=== PATIENT | female | born 1940 | race Caucasian/White ===

== ENCOUNTER 2017-06-10 20:40 | Inpatient (IN) | payer MEDICARE, OTHER ==
[~2017-06-10] VITALS: Ht 167.6 cm; Wt 68.2 kg
[2017-06-10 21:00] VITALS: BP 194/99; PULSE 76; RESP 16; TEMP 97.9; O2SAT 99
[2017-06-10] MEDS ORDERED: QUEtiapine FUMARATE 25 MG TAB PO ONE (21:00)
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
[2017-06-10] MEDS ORDERED: LORazepam 2 MG/ML VIAL IM ONE (21:30)
[2017-06-10] MEDS ORDERED: OLANZapine IM 10 MG VIAL IM ONE (23:00)
[2017-06-11 00:27] LABS: AUTOMATED NEUTROPHIL # 3.8 TH/MM3 (1.8-7.7); BASOPHIL # 0.1 TH/MM3 (0-0.2); BASOPHIL % 1.1 % (0.0-2.0); EOSINOPHIL # 0.1 TH/MM3 (0-0.4); EOSINOPHIL % 0.8 % (0.0-4.0); HEMATOCRIT 38.4 % (35.0-46.0); HEMOGLOBIN 12.1 GM/DL (11.6-15.3); LYMPH % 31.8 % (9.0-44.0); LYMPHOCYTE # 2.1 TH/MM3 (1.0-4.8); MEAN CELL VOLUME 74.4 FL (80.0-100.0); MEAN CORPUSCULAR HEMOGLOBIN 23.5 PG (27.0-34.0); MEAN CORPUSCULAR HGB CONC 31.6 % (32.0-36.0); MEAN PLATELET VOLUME 7.8 FL (7.0-11.0); MONO % 7.9 % (0.0-8.0); MONOCYTE # 0.5 TH/MM3 (0-0.9); NEUT % 58.4 % (16.0-70.0); PLATELET COUNT 256 TH/MM3 (150-450); RED BLOOD COUNT 5.17 MIL/MM3 (4.00-5.30); WHITE BLOOD COUNT 6.5 TH/MM3 (4.0-11.0)
[2017-06-11 00:42] LABS: ALBUMIN 3.8 GM/DL (3.4-5.0); ALT (GPT) 23 U/L (10-53); AST (GOT) 20 U/L (15-37); BLOOD UREA NITROGEN 12 MG/DL (7-18); CALCIUM 9.5 MG/DL (8.5-10.1); CHLORIDE 107 MEQ/L (98-107); CREATININE 0.66 MG/DL (0.50-1.00); GLOMERULAR FILTRATION RATE 87 ML/MIN (>89); GLUCOSE,RANDOM 97 MG/DL (74-106); SODIUM (NA) 142 MEQ/L (136-145)
[2017-06-11 00:52] LABS: ALKALINE PHOSPHATASE 74 U/L (45-117); TOTAL BILIRUBIN ADULT 2.3 MG/DL (0.2-1.0)
[2017-06-11 03:00] VITALS: BP 136/74; PULSE 63; RESP 14; O2SAT 99
[2017-06-11 08:00] VITALS: BP 138/82; PULSE 76; RESP 16; TEMP 97.7; O2SAT 99
[2017-06-11] MEDS ORDERED: LORazepam 2 MG/ML VIAL IM ONE (09:00)
[2017-06-11 12:00] VITALS: BP 117/64; PULSE 65; RESP 14; O2SAT 99
[2017-06-11 12:40] LABS: BACTERIA, URINE RARE /hpf; BILIRUBIN, URINE NEG (NEG); BLOOD, URINE NEG (NEG); GLUCOSE,URINE NEG (NEG); KETONE, URINE NEG (NEG); MUCUS URINE FEW /lpf (OCC); NITRITE,URINE NEG (NEG); PH, URINE 6.5 (5.0-8.5); URINE COLOR LIGHT-YELLOW (YELLW/STRAW); URINE LEUKOCYTE ESTERASE TRACE (NEG)
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
--- NOTE | 2017-06-11 15:28 | HHI.PR ---
Subjective Remarks Endeavored to see pt for H&P. Chart reviewed. Case discussed with RN in D-Pod , shift manager, and sitter at bedside. On my exam, patient is sedated. She is in soft wrist restraints. She cannot be made to awaken to voice or to physical stimuli. She is breathing easily and appears to be in no acute physical distress. //BA remains in place. NEUROSURGERY PHYSICIAN to admit patient to inpatient psychiatric unit. I will try again to assess patient tomorrow on the unit. Recommend discontinuing restraints now that patient is calm and has a sitter for behavioral redirection. Objective Exam Patient is sedated. Unable to perform MSE. Labs Test 06/10/17 23:39 06/11/17 11:45 White Blood Count 6.5 TH/MM3 Red Blood Count 5.17 MIL/MM3 Hemoglobin 12.1 GM/DL Hematocrit 38.4 % Mean Corpuscular Volume 74.4 FL Mean Corpuscular Hemoglobin 23.5 PG Mean Corpuscular Hemoglobin Concent 31.6 % Red Cell Distribution Width 16.0 % Platelet Count 256 TH/MM3 Mean Platelet Volume 7.8 FL Neutrophils (%) (Auto) 58.4 % Lymphocytes (%) (Auto) 31.8 % Monocytes (%) (Auto) 7.9 % Eosinophils (%) (Auto) 0.8 % Basophils (%) (Auto) 1.1 % Neutrophils # (Auto) 3.8 TH/MM3 Lymphocytes # (Auto) 2.1 TH/MM3 Monocytes # (Auto) 0.5 TH/MM3 Eosinophils # (Auto) 0.1 TH/MM3 Basophils # (Auto) 0.1 TH/MM3 CBC Comment DIFF FINAL Differential Comment Blood Urea Nitrogen 12 MG/DL Creatinine 0.66 MG/DL Random Glucose 97 MG/DL Total Protein 7.0 GM/DL Albumin 3.8 GM/DL Calcium Level 9.5 MG/DL Alkaline Phosphatase 74 U/L Aspartate Amino Transf (AST/SGOT) 20 U/L Alanine Aminotransferase (ALT/SGPT) 23 U/L Total Bilirubin 2.3 MG/DL Sodium Level 142 MEQ/L Potassium Level 3.6 MEQ/L Chloride Level 107 MEQ/L Carbon Dioxide Level 27.0 MEQ/L Anion Gap 8 MEQ/L Estimat Glomerular Filtration Rate 87 ML/MIN Thyroid Stimulating Hormone 3rd Gen 1.850 uIU/ML Ethyl Alcohol Level LESS THAN 3 MG/DL Urine Color LIGHT-YELLOW Urine Turbidity CLEAR Urine pH 6.[address] [place] 1.008 Urine Protein NEG mg/dL Urine Glucose (UA) NEG mg/dL Urine Ketones NEG mg/dL Urine Occult Blood NEG Urine Nitrite NEG Urine Bilirubin NEG Urine Urobilinogen LESS THAN 2.0 MG/DL Urine Leukocyte Esterase TRACE Urine WBC 2 /hpf Urine Bacteria RARE /hpf Urine Mucus FEW /lpf Microscopic Urinalysis Comment CULT NOT INDICATED Urine Opiates Screen NEG Urine Barbiturates Screen NEG Urine Amphetamines Screen NEG Urine Benzodiazepines Screen NEG Urine Cocaine Screen NEG Urine Cannabinoids Screen NEG Vitals/IOs Vital Signs Date Time Temp Pulse Resp B/P (MAP) Pulse Ox O2 Delivery O2 Flow Rate FiO2 06/11/17 03:00 63 14 136/74 (94) 99 06/10/17 21:00 97.9 Intake and Output 06/11/17 06/11/17 06/12/17 08:00 16:00 00:00 Output Total 375 ml Balance -375 ml Assessment & Plan Problem List: (1) Encounter for psychiatric assessment ICD Codes: Z76.89 - Persons encountering health services in other specified circumstances Assessment & Plan See above Eliezer Gambino MD Jun 11, 2017 15:28
[2017-06-11] MEDS ORDERED: ALUMINUM/MAGNESIUM/SIMETH 30 ML CUP PO PRN (15:30)
[2017-06-11] MEDS ORDERED: MAGNESIUM HYDROXIDE SUSP 30 ML CUP PO PRN (15:30)
[2017-06-11] MEDS ORDERED: FLUMAZENIL 0.5 MG/5 ML VIAL IV PUSH PRN (15:30)
[2017-06-11] MEDS ORDERED: ACETAMINOPHEN 325 MG TAB PO PRN (15:30)
[2017-06-11] MEDS ORDERED: LORazepam 2 MG/ML VIAL IV PUSH PRN ×4 (16:00)
[2017-06-11] MEDS ORDERED: LORazepam 2 MG TAB PO PRN (16:00)
[2017-06-11] MEDS ORDERED: LORazepam 1 MG TAB PO PRN (16:00)
[2017-06-11] MEDS ORDERED: OLANZapine IM 10 MG VIAL IM ONE ×3 (19:29→23:45)
[2017-06-12 05:53] VITALS: BP 133/85; PULSE 120; RESP 18; TEMP 97.5; O2SAT 96
--- NOTE | 2017-06-12 08:00 | HHI.HP ---
Provisional Diagnosis Admission Date Jun 11, 2017 at 15:31 [place] I. 1. 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 Alcohol use, rule out use disorder [place] II. Deferred Certification of Person's Competence To Provide Express and Informed Consent I have personally examined Julienne Lima , a person being served at [facility] on, Jun 12, 2017 08:00. Express and informed consent means consent voluntarily given in writing, by a competent person, after sufficient explanation and disclosure of the subject matter involved to enable the person to make a knowing and willful decision without any element of force, fraud, deceit, duress, or other form of constraint or coercion. This person is 18 years of age or older, is not now known to be incompetent to consent to treatment with a guardian advocate, and does not have a health care surrogate or proxy currently making medical treatment decisions. I have found this person to be one of the following: [] Competent to provide express and informed consent, as defined above, for voluntary admission to this facility and is competent to provide express and informed consent for treatment. He/she has the consistent capacity to make well reasoned, willful, and knowing decisions concerning his or her medical or mental health treatment. The person fully and consistently understands the purpose of the admission for examination/placement and is fully capable of personally exercising all rights assured [place] [x] Incompetent to provide express and informed consent to voluntary admission, and this is incompetent to provide express and informed consent to treatment. The person must be transferred to involuntary status and a petition for a guardian advocate filed with the Circuit Court. [] Refusing to provide express and informed consent to voluntary admission but is competent to provide express and informed consent for treatment. The person must be discharged or transferred to involuntary status. Form shall be completed within 24 hours of a person's arrival at the receiving facility and filed in the clinical record of each person: 1. Admitted on a voluntary basis 2. Permitted to provide express and informed consent to his/her own treatment 3. Allowed to transfer from involuntary to voluntary status 4. Prior to permitting a person to consent to his or her own treatment after having been previously found incompetent to consent to treatment. History of Present Illness Capacity: Lacks Capacity Psych Chief Complaint: Dementia with psychosis HPI Ms. Lima is a 76-year-old female of uncertain past psychiatric history who was brought to the emergency department under a Garcia act by law enforcement alleging patient thought there was a woman in her house and had minimal food in the house. Patient was seen by the psychiatric nurse practitioner in the ED, and I have reviewed her notes. Reviewing the electronic medical record, I note this is patient's first visit to [facility]. Patient seen and examined. Chart reviewed. Case discussed with nursing staff. Patient awoke yesterday evening and was severely agitated, and at one point she tried to bite her sitter. As the physician solar installation technician, I ordered the patient medicated with Zyprexa 5 mg IM ETO, and when this was ineffective I ordered another 5 mg of Zyprexa IM ETO. Nurse reports that there is a active DCF investigation with concern that the patient may be being financially exploited. We are presently unsure who is the focus of this investigation, and nurse has tried to call DCF safety investigator/cause analyst to clarify this. On my exam this morning, patient remains with 1:1 sitter. She exhibits carphologia, picking at her blanket. She is quite confused and appears to be responding to internal stimuli. She makes odd statements at time, for example saying apropos of nothing, "no good time [employer] deal." Affect is irritable and dysphoric. She refuses to answer questions regarding SI/HI/AVH. Psychiatric interview is limited as patient is uncooperative and confused. She complains of generalized myalgias but has no other physical complaints. I do see the patient later up on the unit ambulating with her one-to-one sitter. I am unable to obtain any past psychiatric, family, chemical dependency or social history from the patient as she is uncooperative and confused. Patient does allow limited mental status testing: Registration is 0 out of 3 and recall is 0 out of 3 at 3 minutes. She believes that it is 1917 but does give the month correctly as May. She does not know the location. She cannot identify objects. She is able to spell the word world forwards but not backwards. Review of Systems ROS Limitations: Uncooperative, Poor Historian Except as stated in HPI: all other systems reviewed are Neg Past Family Social History Coded Allergies: No Allergy Information Available (Unverified , 06/10/17) Past Medical History See electronic medical record Unable to Obtain Active Prescriptions or Reported Meds Current Medications Medications (Trade) Dose Ordered Sig/Taylor Route Start Time Stop Time Status Last Admin (Tylenol) 650 mg Q4H PRN PO 06/11/17 15:30 (Milk Of Magnesia Liq) 30 ml DAILY PRN PO 06/11/17 15:30 (Mag-Al Plus Susp Liq) 30 ml Q6H PRN PO 06/11/17 15:30 (Folate) 1 mg DAILY PO 06/12/17 09:00 06/17/17 08:59 (Vitamin B1) 100 mg DAILY PO 06/12/17 09:00 (Theragran M Tab) 1 tab DAILY PO 06/12/17 09:00 06/17/17 08:59 (Romazicon Inj) 0.2 mg Q1M PRN IV PUSH 06/11/17 15:30 (Ativan) 1 mg Q4H PRN PO 06/11/17 16:00 (Ativan Inj) 1 mg Q4H PRN IV PUSH 06/11/17 16:00 (Ativan) 2 mg Q2H PRN PO 06/11/17 16:00 (Ativan Inj) 2 mg Q2H PRN IV PUSH 06/11/17 16:00 (Ativan Inj) 2 mg Q1H PRN IV PUSH 06/11/17 16:00 (Ativan Inj) 2 mg Q15M PRN IV PUSH 06/11/17 16:00 Patient's Strengths (min. 2) In a monitored setting. Retains some verbal fluency. Physical Exam Physical exam completed by ED provider. On my examination today, the patient appears to be in no acute physical distress. No motor abnormalities noted. No signs of alcohol withdrawal noted. Labs and vitals reviewed: Vital Signs Vital Signs Date Time Temp Pulse Resp B/P (MAP) Pulse Ox O2 Delivery O2 Flow Rate FiO2 06/12/17 05:53 97.5 120 18 133/85 (101) 96 06/11/17 12:00 Room Air Lab Results Laboratory Tests Test 06/10/17 23:39 06/11/17 11:45 White Blood Count 6.5 TH/MM3 Red Blood Count 5.17 MIL/MM3 Hemoglobin 12.1 GM/DL Hematocrit 38.4 % Mean Corpuscular Volume 74.4 FL Mean Corpuscular Hemoglobin 23.5 PG Mean Corpuscular Hemoglobin Concent 31.6 % Red Cell Distribution Width 16.0 % Platelet Count 256 TH/MM3 Mean Platelet Volume 7.8 FL Neutrophils (%) (Auto) 58.4 % Lymphocytes (%) (Auto) 31.8 % Monocytes (%) (Auto) 7.9 % Eosinophils (%) (Auto) 0.8 % Basophils (%) (Auto) 1.1 % Neutrophils # (Auto) 3.8 TH/MM3 Lymphocytes # (Auto) 2.1 TH/MM3 Monocytes # (Auto) 0.5 TH/MM3 Eosinophils # (Auto) 0.1 TH/MM3 Basophils # (Auto) 0.1 TH/MM3 CBC Comment DIFF FINAL Differential Comment Blood Urea Nitrogen 12 MG/DL Creatinine 0.66 MG/DL Random Glucose 97 MG/DL Total Protein 7.0 GM/DL Albumin 3.8 GM/DL Calcium Level 9.5 MG/DL Alkaline Phosphatase 74 U/L Aspartate Amino Transf (AST/SGOT) 20 U/L Alanine Aminotransferase (ALT/SGPT) 23 U/L Total Bilirubin 2.3 MG/DL Sodium Level 142 MEQ/L Potassium Level 3.6 MEQ/L Chloride Level 107 MEQ/L Carbon Dioxide Level 27.0 MEQ/L Anion Gap 8 MEQ/L Estimat Glomerular Filtration Rate 87 ML/MIN Thyroid Stimulating Hormone 3rd Gen 1.850 uIU/ML Ethyl Alcohol Level LESS THAN 3 MG/DL Urine Color LIGHT-YELLOW Urine Turbidity CLEAR Urine pH 6.5 Urine Specific Adger 1.008 Urine Protein NEG mg/dL Urine Glucose (UA) NEG mg/dL Urine Ketones NEG mg/dL Urine Occult Blood NEG Urine Nitrite NEG Urine Bilirubin NEG Urine Urobilinogen LESS THAN 2.0 MG/DL Urine Leukocyte Esterase TRACE Urine WBC 2 /hpf Urine Bacteria RARE /hpf Urine Mucus FEW /lpf Microscopic Urinalysis Comment CULT NOT INDICATED Urine Opiates Screen NEG Urine Barbiturates Screen NEG Urine Amphetamines Screen NEG Urine Benzodiazepines Screen NEG Urine Cocaine Screen NEG Urine Cannabinoids Screen NEG Mental Status Examination Appearance: Other (Fair grooming/hygiene) Consciousness: Alert (But keeps eyes tightly closed) Orientation: Person, Date/Time (May) Motor Activity: Other (Motor exam as above) Speech: Hesitant Language: Other (Rambling) Attention and Concentration: Easily Distracted Memory: Impaired Mood: Irritable, Other (Dysphoric) Affect: Other (Restricted) Thought Process & Associations: Disorganized Thought Content: Hallucinations Hallucination Type: Other (Responding to internal stimuli) Delusion Type: None Insight: Poor Judgment: Poor Mental Status Exam Remarks Patient noncommittal regarding SI, HI, AVH Assessment & Plan Problem List: (1) Dementia with psychosis ICD Codes: F03.91 - Unspecified dementia with behavioral disturbance Status: Acute Assessment & Plan 76-year-old female with psychiatric history as detailed above who presents under a Garcia act by law enforcement. On my examination today, the patient continues to exhibit signs of cognitive impairment and psychosis as identified by the nurse practitioner. Although nurse practitioner identified to relatives who might serve as health care surrogate, until we have a clearer idea of who is the focus of the DCF investigation regarding exploitation of the patient, I think it is prudent to hold off on using either individual for psychotropic medication consents. For the time being, I will plan to admit the patient to the inpatient psychiatric unit for safety and observation. Admitted inpatient. Involuntary status. I have completed first opinion. Consult for second opinion. Request healthcare surrogate and guardian advocate. Hold off on scheduled psychotropics for the time being until we identify HCS. Patient would likely benefit from an antipsychotic for the management of psychosis in the setting of probable dementia. Patient does have a possible history of alcohol use, and so I will order a CIWA scale with Ativan for the management of any withdrawal. Thiamine and folate. Seizure and fall precautions. PT eval. Unclear if patient's cognitive impairment has previously been worked up. TSH is wnl. UA with trace LE, check urine culture. Check head CT, RPR, HIV, ammonia, B12, vitamin D, thiamine, folate. Continue 1:1 sitter for fall risk and behavioral redirection. Vitals every shift. Counselor to see. Disposition planning. Estimated length of stay: 1-2 weeks. Discharge Planning To be determined Request HC Surrog/Guard Advoc?: Yes Eliezer Gambino MD Jun 12, 2017 08:00
[2017-06-12] MEDS: THIAMINE HCL 100 MG TAB PO SCH (09:00)
[2017-06-12] MEDS: FOLIC ACID 1 MG TAB PO SCH (09:00)
[2017-06-12] MEDS: MULTIVITAMINS/MINERALS THERAPEUTIC TAB PO SCH (10:18)
[2017-06-12 10:28] LABS: BICARBONATE 29.3 MEQ/L (21.0-32.0); BLOOD UREA NITROGEN 9 MG/DL (7-18); CALCIUM 9.5 MG/DL (8.5-10.1); CHLORIDE 107 MEQ/L (98-107); CHOLESTEROL 175 MG/DL (120-200); CREATININE 0.63 MG/DL (0.50-1.00); GLOMERULAR FILTRATION RATE 92 ML/MIN (>89); GLUCOSE,RANDOM 112 MG/DL (74-106); SODIUM (NA) 144 MEQ/L (136-145); TRIGLYCERIDES 69 MG/DL (42-150)
[2017-06-12 10:31] LABS: CHOLESTEROL/ HDL RATIO 2.06 RATIO; HDL CHOLESTEROL 84.9 MG/DL (40.0-60.0); LDL CHOLESTEROL 76 MG/DL (0-99)
[2017-06-12 12:32] LABS: FOLATE GREATER THAN 20.0 NG/ML (3.1-17.5)
[2017-06-12 17:23] VITALS: BP 156/100; PULSE 110; RESP 18; TEMP 97.2; O2SAT 96
[2017-06-13 06:16] VITALS: BP 171/81; PULSE 71; RESP 16; TEMP 98.9; O2SAT 99
[2017-06-13] MEDS: FOLIC ACID 1 MG TAB PO SCH (10:05)
[2017-06-13] MEDS: MULTIVITAMINS/MINERALS THERAPEUTIC TAB PO SCH (10:05)
[2017-06-13] MEDS: THIAMINE HCL 100 MG TAB PO SCH (10:05)
--- NOTE | 2017-06-13 12:58 | PD.PSY.CON ---
Provisional Diagnosis Admission Date Jun 11, 2017 at 15:31 [place] I. 1. 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 Alcohol use, rule out use disorder [place] II. Deferred History of Present Illness Service Psychiatry Consult Requested By Psychiatry Reason for Consult Second opinion Primary Care Physician Unknown HPI Ms. Lima is a 76-year-old female of uncertain past psychiatric history who was brought to the emergency department under a Garcia act by law enforcement alleging patient thought there was a woman in her house and had minimal food in the house. Patient was seen by the psychiatric nurse practitioner in the ED, and I have reviewed her notes. Reviewing the electronic medical record, I note this is patient's first visit to [facility].Patient seen and examined. Chart reviewed. Case discussed with nursing staff. Patient awoke yesterday evening and was severely agitated, and at one point she tried to bite her sitter. As the physician rehabilitation clerk, I ordered the patient medicated with Zyprexa 5 mg IM ETO , and when this was ineffective I ordered another 5 mg of Zyprexa IM ETO. Nurse reports that there is a active DCF investigation with concern that the patient may be being financially exploited. We are presently unsure who is the focus of this investigation, and nurse has tried to call DCF internal affairs investigator to clarify this. On my exam this morning, patient remains with 1:1 sitter. She exhibits carphologia, picking at her blanket. She is quite confused and appears to be responding to internal stimuli. She makes odd statements at time , for example saying apropos of nothing, "no good time [employer]." Affect is irritable and dysphoric. She refuses to answer questions regarding SI/HI/ AVH. Psychiatric interview is limited as patient is uncooperative and confused. She complains of generalized myalgias but has no other physical complaints. I do see the patient later up on the unit ambulating with her one- to-one sitter. Patient was seen today for second opinion. The patient is poorly cooperative, very oppositional and resistant. She is also irritable and verbally hostile. She reports that she does not want a repeat again what she has been saying over and over. The patient reports that she does not know what is the reason she is here. She says that she does not want to speak with any psychiatrist anymore "you asked to many unnecessary questions, you are not help him". As per nursing staff, the patient has been calm today, but episodically agitated and loud. Past Family Social History Coded Allergies: No Allergy Information Available (Unverified , 06/10/17) Unable to Obtain Active Prescriptions or Reported Meds Current Medications Medications (Trade) Dose Ordered Sig/Taylor Route Start Time Stop Time Status Last Admin (Tylenol) 650 mg Q4H PRN PO 06/11/17 15:30 (Milk Of Magnesia Liq) 30 ml DAILY PRN PO 06/11/17 15:30 (Mag-Al Plus Susp Liq) 30 ml Q6H PRN PO 06/11/17 15:30 (Folate) 1 mg DAILY PO 06/12/17 09:00 06/17/17 08:59 06/13/17 10:05 (Vitamin B1) 100 mg DAILY PO 06/12/17 09:00 06/13/17 10:05 (Theragran M Tab) 1 tab DAILY PO 06/12/17 09:00 06/17/17 08:59 06/13/17 10:05 (Romazicon Inj) 0.2 mg Q1M PRN IV PUSH 06/11/17 15:30 (Ativan) 1 mg Q4H PRN PO 06/11/17 16:00 06/12/17 21:48 (Ativan Inj) 1 mg Q4H PRN IV PUSH 06/11/17 16:00 (Ativan) 2 mg Q2H PRN PO 06/11/17 16:00 (Ativan Inj) 2 mg Q2H PRN IV PUSH 06/11/17 16:00 (Ativan Inj) 2 mg Q1H PRN IV PUSH 06/11/17 16:00 (Ativan Inj) 2 mg Q15M PRN IV PUSH 06/11/17 16:00 Patient's Strengths (min. 2) In a monitored setting. Retains some verbal fluency. Physical Exam Vital Signs Vital Signs Date Time Temp Pulse Resp B/P (MAP) Pulse Ox O2 Delivery O2 Flow Rate FiO2 06/13/17 06:16 98.9 71 16 171/81 (111) 99 06/11/17 12:00 Room Air I/O 06/13/17 06/13/17 06/13/17 07:59 15:59 23:59 Intake Total 120 ml Balance 120 ml Mental Status Examination Appearance: Other (Fair grooming/hygiene) Consciousness: Alert (But keeps eyes tightly closed) Orientation: Person, Date/Time (May) Motor Activity: Other (Motor exam as above) Speech: Hesitant Language: Other (Rambling) Attention and Concentration: Easily Distracted Memory: Impaired Mood: Irritable, Other (Dysphoric) Affect: Other (Restricted) Thought Process & Associations: Disorganized Thought Content: Hallucinations Hallucination Type: Other (Responding to internal stimuli) Delusion Type: None Insight: Poor Judgment: Poor Assessment & Plan Problem List: (1) Dementia with psychosis ICD Codes: F03.91 - Unspecified dementia with behavioral disturbance Status: Acute Assessment & Plan: I have seen and examined this patient, reviewed documentation, I agree and concur with Dr. Gambino assessment and plan. Assessment & Plan Estimated LOS: days Request HC Surrog/Guard Advoc?: Yes Balwinder Pastrana MD Jun 13, 2017 12:58
--- NOTE | 2017-06-13 16:44 | HHI.PYPN ---
Subjective Chief Complaint: Dementia with psychosis Remarks Patient is a 76-year-old woman, domiciled alone, unemployed, with no formal past psychiatric history, unclear previous psychiatric admissions, suicide attempts or self-injurious behavior, was admitted to 2 recent paranoia and delusions of people stealing from her home as well as people in her house, but she has called police 6 times prior to her admission and resulted in well check and had patient Garcia acted and subsequently admitted to the inpatient psychiatry for further evaluation and management. Currently there is a DCF case which is currently under investigation and unclear whether patient's relatives were exploiting the patient financially at this time we will continue defer signing any specific relative to act as health care surrogate. Patient continues to be alert and oriented only to person, continues with paranoid delusions during interview as per nursing report patient less evening had difficulty with sleep and was screaming all night. Patient's CIWA scores have been 2 [id number] continues on CIWA protocol. Patient unable to tolerate CT of the head for now will continue to look for the opportunity were patient is able tolerate to have the study done. Patient states that she is feeling "100%" stating that she has no problem at all, stating that her mood has been "fine". Patient states that her father had 2 months ago. Patient sitter has stated the patient continues to be noted to be irritable and cursing. Review of Systems Except as stated in HPI: all other systems reviewed are Neg Mental Status Examination Appearance: Other (Fair grooming/hygiene) Consciousness: Alert (But keeps eyes tightly closed) Orientation: Person, Date/Time (May) Motor Activity: Other (Motor exam as above) Speech: Hesitant Language: Other (Rambling) Attention and Concentration: Easily Distracted Memory: Impaired Mood: Irritable Affect: Irritable Thought Process & Associations: Disorganized Thought Content: Hallucinations Hallucination Type: Other (Responding to internal stimuli) Delusion Type: None Insight: Poor Judgment: Poor Results Vitals/IOs Vital Signs Date Time Temp Pulse Resp B/P (MAP) Pulse Ox O2 Delivery O2 Flow Rate FiO2 06/13/17 06:16 98.9 71 16 171/81 (111) 99 06/11/17 12:00 Room Air Intake and Output 06/13/17 06/13/17 06/13/17 07:59 15:59 23:59 Intake Total 120 ml 120 ml Balance 120 ml 120 ml Assessment & Plan Problem List: (1) Dementia with psychosis ICD Codes: F03.91 - Unspecified dementia with behavioral disturbance Status: Acute Assessment & Plan Patient continues with irritability, paranoia, labile mood with episodes of cursing towards staff. Patient will benefit from antipsychotic to address psychosis in the setting of dementia but at this time due to ongoing DCF case unclear who will be the appropriate contact to serve as health care surrogate for consent to medications. We will continue to try to clarify with DCF pair findings to be able to appoint someone as patient's health care surrogate to begin treatment. Continue to monitor mood and behavior. Patient to continue one-to-one observation for safety. Discharge planning in progress. Justification for Cont. Inpt. At risk for further decompensation if at lower level of care Request HC Surrog/Guard Advoc?: Yes Ernie Payne MD Jun 13, 2017 16:44
[2017-06-13 16:49] LABS: HEMOGLOBIN A1C 4.5 % (4.3-6.0)
[2017-06-13 19:01] VITALS: BP 154/73; PULSE 90; RESP 17; O2SAT 98
[2017-06-14 06:14] VITALS: BP 168/86; PULSE 73; RESP 17; TEMP 97.5; O2SAT 97
--- NOTE | 2017-06-14 10:55 | RADRPT ---
EXAM DATE/TIME: 06/14/2017 10:31 [facility] COMPARISON: No previous studies available for comparison. INDICATIONS : Altered mental status RADIATION DOSE: 33.50 CTDIvol (mGy) MEDICAL HISTORY : None SURGICAL HISTORY : None. ENCOUNTER: Initial ACUITY: 1 day PAIN SCALE: 0/10 LOCATION: cranial TECHNIQUE: Multiple contiguous axial images were obtained of the head. Using automated exposure control and adj ustment of the mA and/or kV according to patient size, radiation dose was kept as low as reasonably a chievable to obtain optimal diagnostic quality images. DICOM format image data is available electro nically for review and comparison. FINDINGS: CEREBRUM: Moderate diffuse renal atrophy. Diffuse ventriculomegaly slightly out of proportion to degree of atro phy. No evidence of midline shift, mass lesion, hemorrhage or acute infarction. No extra-axial fluid collections are seen. POSTERIOR FOSSA: Moderate diffuse cerebral atrophy. The cerebellum and brainstem are intact. The 4th ventricle is mid line. The cerebellopontine angle is unremarkable. EXTRACRANIAL: The visualized portion of the orbits is intact. SKULL: The calvaria is intact. No evidence of skull fracture. CONCLUSION: 1. Senescent changes with diffuse ventriculomegaly that is slightly out of proportion to degree of at rophy. Clinical correlation for normal pressure hydrocephalus is recommended. 2. Otherwise, no acute intracranial abnormality. Fer Solano MD on June 14, 2017 at 10:51 Board Certified Radiologist. This report was verified electronically.
[2017-06-14] MEDS: FOLIC ACID 1 MG TAB PO SCH (11:01)
[2017-06-14] MEDS: MULTIVITAMINS/MINERALS THERAPEUTIC TAB PO SCH (11:01)
[2017-06-14] MEDS: THIAMINE HCL 100 MG TAB PO SCH (11:01)
--- NOTE | 2017-06-14 11:10 | HHI.PYPN ---
Subjective Chief Complaint: Dementia with psychosis Remarks Patient seen for follow, chart reviewed. Discussion nursing staff reported the patient slightly less evening but noted to be agitated with roommate begins talking out loud, noted to be have perceptual services, CIWA negative. Patient was found lying hospital bed asleep was able to wake up for interview. Patient states that she has been feeling tired and her mood in general has been "awful to explain" but was unable to elaborate. Patient denies any perceptional services despite being observed to be responding to internal stimuli. Patient believes that she is in her bedroom at home and states that she speaks to her daily but then states that he had . Patient reports last that she has been with her and was less evening. Patient continues to be alert and oriented only to person. Review of Systems Except as stated in HPI: all other systems reviewed are Neg Mental Status Examination Appearance: Other (Fair grooming/hygiene) Consciousness: Alert (But keeps eyes tightly closed) Orientation: Person, Date/Time (May) Motor Activity: Other (Motor exam as above) Speech: Hesitant Language: Other (Rambling) Attention and Concentration: Easily Distracted Memory: Impaired Mood: Other ("Awful to explain") Affect: Irritable (Less so today) Thought Process & Associations: Disorganized Thought Content: Hallucinations Hallucination Type: Other (Responding to internal stimuli) Delusion Type: None Suicidal Ideation: No Suicidal Plan: No Suicidal Intention: No Homicidal Ideation: No Homicidal Plan: No Homicidal Intention: No Insight: Poor Judgment: Poor Results Vitals/IOs Vital Signs Date Time Temp Pulse Resp B/P (MAP) Pulse Ox O2 Delivery O2 Flow Rate FiO2 06/14/17 06:14 97.5 73 17 168/86 (113) 97 06/11/17 12:00 Room Air Intake and Output 06/14/17 06/14/17 06/15/17 08:00 16:00 00:00 Intake Total 120 ml Balance 120 ml Assessment & Plan Problem List: (1) Dementia with psychosis ICD Codes: F03.91 - Unspecified dementia with behavioral disturbance Status: Acute Assessment & Plan Patient this time continues to be alert and oriented only to person, continue to be observed to have responsiveness to internal stimuli and hallucinations. Patient would benefit from starting antipsychotic but at this time unclear whether any family member can serve as health care surrogate due to ongoing DCF case at this time. Treatment team attempted to contact gang investigator from [facility] but has not had focal returned yet for more information. We will continue to await clarification of this to be able to sign someone as a GCS to the patient may begin treatment. Patient will present to mental health court on and if there is no family member that can be appointed, MARICRUZ will be appointed through the court. Continue to monitor mood and behavior. Continue with one-to -one sitter for safety. Discharge planning in progress. Justification for Cont. Inpt. At risk for further decompensation if at lower level of care Request HC Surrog/Guard Advoc?: Yes Ernie Payne MD Jun 14, 2017 11:10
[2017-06-14 18:31] VITALS: BP 123/58; PULSE 81; RESP 16; TEMP 97.6; O2SAT 97
[2017-06-15 05:02] VITALS: BP 133/61; PULSE 63; RESP 15; TEMP 97.7; O2SAT 97
[2017-06-15] MEDS: MULTIVITAMINS/MINERALS THERAPEUTIC TAB PO SCH (09:53)
[2017-06-15] MEDS: FOLIC ACID 1 MG TAB PO SCH (09:53)
[2017-06-15] MEDS: THIAMINE HCL 100 MG TAB PO SCH (09:53)
--- NOTE | 2017-06-15 16:43 | HHI.PYPN ---
Subjective Chief Complaint: Dementia with psychosis Remarks Patient seen for follow-up, chart reviewed. Discussion nursing staff reported patient continues to be noted to have visual hallucinations at times, but no aggressive behavior recently. Was found sitting hospital bed over viewing documents stipulating the patient will be presented to mental health court tomorrow and noting that she was upset stating "I am not a crazy person". Patient denies any perceptual disturbances somewhat focused on her is stating that she he was a wonderful man. Patient would at times referred to her has if he was still alive but then later states that he had . She mentions that her had 2 months ago. Patient also stated having and reading a book with restorationism content stating that she had planned to send the author two checks of $100,000 and has been referring this book with 2 of her friends. Review of Systems Except as stated in HPI: all other systems reviewed are Neg Mental Status Examination Appearance: Other (Fair grooming/hygiene) Consciousness: Alert (But keeps eyes tightly closed) Orientation: Person, Date/Time (May) Motor Activity: Other (Motor exam as above) Speech: Hesitant Language: Other (Rambling) Attention and Concentration: Easily Distracted Memory: Impaired Mood: Other ("Awful to explain") Affect: Irritable (Less so today) Thought Process & Associations: Loose associations, Disorganized Thought Content: Hallucinations Hallucination Type: Other (Responding to internal stimuli) Delusion Type: None Suicidal Ideation: No Suicidal Plan: No Suicidal Intention: No Homicidal Ideation: No Homicidal Plan: No Homicidal Intention: No Insight: Poor Judgment: Poor Results Vitals/IOs Vital Signs Date Time Temp Pulse Resp B/P (MAP) Pulse Ox O2 Delivery O2 Flow Rate FiO2 06/15/17 05:02 97.7 63 15 133/61 (85) 97 06/11/17 12:00 Room Air Intake and Output 06/15/17 06/15/17 06/16/17 08:00 16:00 00:00 Intake Total 480 ml 720 ml Balance 480 ml 720 ml Assessment & Plan Problem List: (1) Dementia with psychosis ICD Codes: F03.91 - Unspecified dementia with behavioral disturbance Status: Acute Assessment & Plan Patient at this time continues to have some disorganization, continues to be alert and oriented only to person. Patient continues to be noted to be responding to internal stimuli as per report from consider. Clarification on who will serve as patient's health care surrogate continues to be unclear if patient's family cancer this will due to current ongoing DCF case. Patient will present to mental health court tomorrow. Continue to monitor mood and behavior. Discharge planning in progress. Justification for Cont. Inpt. At risk of further decompensation a lower level of care. Request HC Surrog/Guard Advoc?: Yes Ernie Payne MD Jun 15, 2017 16:42
[2017-06-15 17:54] VITALS: BP 119/80; PULSE 100; RESP 16; TEMP 98; O2SAT 97
[2017-06-16 06:00] VITALS: BP 150/70; PULSE 69; RESP 16; TEMP 97.3; O2SAT 98
[2017-06-16] MEDS: FOLIC ACID 1 MG TAB PO SCH (09:00)
[2017-06-16] MEDS: MULTIVITAMINS/MINERALS THERAPEUTIC TAB PO SCH (09:00)
[2017-06-16] MEDS: THIAMINE HCL 100 MG TAB PO SCH ×2 (09:00→10:48)
--- NOTE | 2017-06-16 12:09 | HHI.PYPN ---
Subjective Chief Complaint: Dementia with psychosis Remarks Patient seen for follow-up, chart reviewed. Discussion with nursing staff reported patient continued to be confused slightly irritable. Patient was found sitting hospital chair next sitter also noted to be irritable during interview. Patient states that she was told by several people that she was going to be discharged back to her home. Patient was alert and oriented 2 today. I attempted to get history patient was noted to be very guarded when she was unable to recall details such as where she was born first saying [place], [place] and then [place]. Patient was noted to be somewhat religiously preoccupied with spiritism book which she had wrapped newspaper. Review of Systems Except as stated in HPI: all other systems reviewed are Neg Mental Status Examination Appearance: Other (Fair grooming/hygiene) Consciousness: Alert (But keeps eyes tightly closed) Orientation: Person, Place Motor Activity: Other (Motor exam as above) Speech: Unremarkable Language: Other (Rambling) Attention and Concentration: Easily Distracted Memory: Impaired Mood: Other ("I'm fine!") Affect: Irritable (Less so today) Thought Process & Associations: Loose associations, Disorganized Thought Content: Hallucinations Hallucination Type: Other (Responding to internal stimuli) Delusion Type: None Suicidal Ideation: No Suicidal Plan: No Suicidal Intention: No Homicidal Ideation: No Homicidal Plan: No Homicidal Intention: No Insight: Poor Judgment: Poor Results Vitals/IOs Vital Signs Date Time Temp Pulse Resp B/P (MAP) Pulse Ox O2 Delivery O2 Flow Rate FiO2 06/16/17 06:00 97.3 69 16 150/70 (96) 98 Intake and Output 06/16/17 06/16/17 06/17/17 08:00 16:00 00:00 Intake Total 60 ml Balance 60 ml Assessment & Plan Problem List: (1) Dementia with psychosis ICD Codes: F03.91 - Unspecified dementia with behavioral disturbance Status: Acute Assessment & Plan Patient this time continues to be confused, with impairment of memory secondary to neurocognitive deficits. Patient was presented in mental health court which patient was kept on a continuance. Reportedly patient's sisters are coming down from [place] with plan to bring patient back up with them to care for her. We will make attempts to reach patient's sister consented psychotropic medications as sisters were signed through mental health court as health care surrogate. Continue to monitor mood and behavior. Continue one-to-one observation for safety. Discharge planning in progress. Justification for Cont. Inpt. At risk for further decompensation if at lower level of care Request HC Surrog/Guard Advoc?: Yes Ernie Payne MD Jun 16, 2017 12:09
[2017-06-16 18:45] VITALS: BP 150/70; PULSE 69; RESP 16; TEMP 97.3
[2017-06-17 06:33] VITALS: BP 153/83; PULSE 69; RESP 15; TEMP 97.6; O2SAT 97
[2017-06-17] MEDS: THIAMINE HCL 100 MG TAB PO SCH (09:08)
[2017-06-17] MEDS ORDERED: OLANZapine IM 10 MG VIAL IM ONE ×2 (11:06→11:15)
--- NOTE | 2017-06-17 15:25 | PD.CONS ---
HPI [facility] Consult Requested By DR CONRAD ANTHONY MD Reason for Consult POSSIBLE normal pressure hydrocephalus Primary Care Physician Unknown Diagnoses: (1) Dementia with psychosis (2) Alcohol use disorder History of Present Illness Patient is a 76-year-old female who is here under a Garcia act due to dementia with psychosis and chronic alcohol abuse. We have been asked to evaluate regarding possibility of normal pressure hydrocephalus. Will ask neurosurgery to evaluate this. Will get a.m. labs. Have discussed with patient and RN patient is able to ambulate without a walker. Review of Systems ROS Limitations: Altered Mental Status Constitutional: DENIES: Diaphoretic episodes, Fatigue, Fever, Weight gain, Weight loss, Chills, Dizziness, Change in appetite, Night Sweats Endocrine: DENIES: Abnorml menstrual pattern, Heat/cold intolerance, Polydipsia , Polyuria, Polyphagia Eyes: DENIES: Blurred vision, Diplopia, Eye inflammation, Eye pain, Vision loss , Photosensitivity, Double Vision Ears, nose, mouth, throat: DENIES: Tinnitus, Hearing loss, Vertigo, Nasal discharge, Oral lesions, Throat pain, Hoarseness, Ear Pain, Running Nose, Epistaxis, Sinus Pain, Toothache, Odynophagia Respiratory: DENIES: Apneas, Cough, Snoring, Wheezing, Hemoptysis, Sputum production, Shortness of breath Cardiovascular: DENIES: Chest pain, Palpitations, Syncope, Dyspnea on Exertion , PND, Lower Extremity Edema, Orthopnea, Claudication Gastrointestinal: DENIES: Abdominal pain, Black stools, Bloody stools, Constipation, Diarrhea, Nausea, Vomiting, Difficulty Swallowing, Anorexia Genitourinary: DENIES: Abnormal vaginal bleeding, Dysmenorrhea, Dyspareunia, Sexual dysfunction, Urinary frequency, Urinary incontinence, Urgency, Hematuria , Dysuria, Nocturia, Vaginal discharge Musculoskeletal: DENIES: Joint pain, Muscle aches, Stiffness, Joint Swelling, Back pain, Neck pain Integumentary: DENIES: Abnormal pigmentation, Pruritus, Rash, Nail changes, Breast masses, Breast skin changes, Nipple discharge Hematologic/lymphatic: DENIES: Bruising, Lymphadenopathy Immunologic/allergic: DENIES: Eczema, Urticaria Neurologic: COMPLAINS OF: Abnormal gait, Poor Balance, DENIES: Headache, Localized weakness, Paresthesias, Seizures, Speech Problems, Tremor Psychiatric: COMPLAINS OF: Anxiety, Confusion, Depression, Delusions, DENIES: Mood changes Except as stated in HPI: all other systems reviewed are Neg Past Family Social History Allergies: Coded Allergies: No Allergy Information Available (Unverified , 06/10/17) Past Medical History Dementia Alcohol abuse Gait instability Past Surgical History Unobtainable from patient Reported Medications Reported Meds & Active Scripts Active Active Prescriptions or Reported Medications Unobtainable Active Ordered Medications Current Medications Quetiapine Fumarate (SEROquel) 25 mg ONCE ONCE PO Last administered on at 21:19; Start 06/10/17 at 21:00; Stop 06/10/17 at 21:01; Status DC Lorazepam (Ativan Inj) 1 mg ONCE ONCE IM Last administered on 06/11/17at 01:18 ; Start 06/10/17 at 21:30; Stop 06/10/17 at 21:31; Status DC Olanzapine (ZyPREXA INJ) 10 mg ONCE ONCE IM Last administered on 06/10/17at 23: 13; Start 06/10/17 at 23:00; Stop 06/10/17 at 23:01; Status DC Lorazepam (Ativan Inj) 1 mg ONCE ONCE IM Last administered on 06/11/17at 08:59 ; Start 06/11/17 at 09:00; Stop 06/11/17 at 09:01; Status DC Acetaminophen (Tylenol) 650 mg Q4H PRN PO Pain 1-5 or Temp >101F Last administered on 06/13/17at 17:40; Start 06/11/17 at 15:30 Magnesium Hydroxide (Milk Of Magnesia Liq) 30 ml DAILY PRN PO CONSTIPATION; Start 06/11/17 at 15:30 Al Hydrox/Mg Hydrox/Simethicone (Mag-Al Plus Susp Liq) 30 ml Q6H PRN PO DYSPEPSIA; Start 06/11/17 at 15:30 Folic Acid (Folate) 1 mg DAILY PO Last administered on 06/16/17at 09:00; Start 06/12/17 at 09:00; Stop 06/17/17 at 08:59; Status DC Thiamine HCl (Vitamin B1) 100 mg DAILY PO Last administered on 06/17/17at 09:08 ; Start 06/12/17 at 09:00 Multivitamins/ Minerals Therapeutic (Theragran M Tab) 1 tab DAILY PO Last administered on 06/16/17at 09:00; Start 06/12/17 at 09:00; Stop 06/17/17 at 08:59 ; Status DC Flumazenil (Romazicon Inj) 0.2 mg Q1M PRN IV PUSH SEE LABEL COMMENTS; Start at 15:30 Lorazepam (Ativan) 1 mg Q4H PRN PO CIWA 8 - 10 Last administered on 06/12/17at 21:48; Start 06/11/17 at 16:00 Lorazepam (Ativan Inj) 1 mg Q4H PRN IV PUSH CIWA 8 - 10; Start 06/11/17 at 16: 00 Lorazepam (Ativan) 2 mg Q2H PRN PO CIWA 11-14; Start 06/11/17 at 16:00 Lorazepam (Ativan Inj) 2 mg Q2H PRN IV PUSH CIWA 11-14; Start 06/11/17 at 16:00 Lorazepam (Ativan Inj) 2 mg Q1H PRN IV PUSH CIWA 15-20; Start 06/11/17 at 16:00 Lorazepam (Ativan Inj) 2 mg Q15M PRN IV PUSH CIWA > 20; Start 06/11/17 at 16:00 Olanzapine (ZyPREXA INJ) 10 mg STK-MED ONCE IM ; Start 06/11/17 at 19:29; Stop 06/11/17 at 19:30; Status DC Olanzapine (ZyPREXA INJ) 5 mg ONCE ONCE IM Last administered on 06/11/17at 19: 30; Start 06/11/17 at 19:45; Stop 06/11/17 at 19:46; Status DC Olanzapine (ZyPREXA INJ) 5 mg ONCE ONCE IM Last administered on 06/11/17at 23: 41; Start 06/11/17 at 23:45; Stop 06/11/17 at 23:46; Status DC Olanzapine (ZyPREXA INJ) 10 mg STK-MED ONCE IM ; Start 06/17/17 at 11:06; Stop 06/17/17 at 11:07; Status DC Olanzapine (ZyPREXA INJ) 5 mg ONCE ONCE IM Last administered on 06/17/17at 11: 15; Start 06/17/17 at 11:15; Stop 06/17/17 at 11:17; Status DC Aripiprazole (Abilify) 2 mg HS PO ; Start 06/17/17 at 21:00 Family History Unobtainable from patient Social History Alcohol abuse per chart review denies any tobacco or illicits currently Physical Exam Vital Signs Vital Signs Date Time Temp Pulse Resp B/P (MAP) Pulse Ox O2 Delivery O2 Flow Rate FiO2 06/17/17 06:33 97.6 69 15 153/83 (106) 97 06/16/17 18:45 97.3 69 16 150/70 (96) Physical Exam GENERAL: This is a well-nourished, well-developed patient, in no apparent distress. SKIN: No rashes, ecchymoses or lesions. Cool and dry. HEAD: Atraumatic. Normocephalic. No temporal or scalp tenderness. EYES: Pupils equal round and reactive. Extraocular motions intact. No scleral icterus. No injection or drainage. ENT: Nose without bleeding, purulent drainage or septal hematoma. Throat without erythema, tonsillar hypertrophy or exudate. Uvula midline. Airway patent. NECK: Trachea midline. No JVD or lymphadenopathy. Supple, nontender, no meningeal signs. CARDIOVASCULAR: Regular rate and rhythm without murmurs, gallops, or rubs. RESPIRATORY: Clear to auscultation. Breath sounds equal bilaterally. No wheezes , rales, or rhonchi. GASTROINTESTINAL: Abdomen soft, non-tender, nondistended. No hepato-splenomegaly , or palpable masses. No guarding. MUSCULOSKELETAL: Extremities without clubbing, cyanosis, or edema. No joint tenderness, effusion, or edema noted. No calf tenderness. Negative Homans sign bilaterally. NEUROLOGICAL: Awake and alert. Cranial nerves II through XII intact. Motor and sensory grossly within normal limits. Five out of 5 muscle strength in all muscle groups. Normal speech. Laboratory Pending Imaging Last Impressions Head CT 06/14/17 0000 Signed Impressions: Service Date/Time: Wednesday, June 14, 2017 10:31 - CONCLUSION: 1. Senescent changes with diffuse ventriculomegaly that is slightly out of proportion to degree of atrophy. Clinical correlation for normal pressure hydrocephalus is recommended. 2. Otherwise, no acute intracranial abnormality. Fer Solano MD Assessment and Plan Assessment and Plan Dementia will defer to psychiatry Alcohol abuse continue on multivitamin thiamine and folic acid Possible normal pressure hydrocephalus We will consult neurosurgery for evaluation physical therapy note does not Suggest wide-based gait Patient does have dementia No issues at this time with urinary issues but is wearing a diaper Possible hypertension we will monitor Code Status Full code Discussed Condition With RN and patient David Gutierrez DO Jun 17, 2017 15:25
[2017-06-17 17:31] VITALS: BP 143/108; PULSE 120; RESP 20; O2SAT 97
--- NOTE | 2017-06-17 17:37 | HHI.PYPN ---
Subjective Chief Complaint: Dementia with psychosis Remarks Patient seen for follow, chart reviewed. Discussion nursing staff reported the patient will be irritable and agitated which she required ETO of Zyprexa 5 mg IM 1 to address symptomatology. Patient was later seen sitting in hospital chair noted B, cooperative. Patient states that she is having a good day, states that family came to visit and having been wanting to take her back to [place]. Patient reports sleeping well with good appetite denies any physical complaints at this time. Patient continues to be confused alert and oriented only to person. Licensed Nurse Practitioner spoke with patient's sister who will serve as health care surrogate during her hospitalization, Adelina Salas ([phone] ) who consented to starting Abilify 2 mg p.o. at bedtime with upward titration as needed for psychosis and agitation related to dementia. Hospitalist consult was requested due to recent head CT showing possible normal pressure hydrocephalus. Patient to continue one-to-one observation for safety. Family is planning to come next week to have patient return to [place] with them. Review of Systems Except as stated in HPI: all other systems reviewed are Neg Mental Status Examination Appearance: Appropriate, Other (Fair grooming/hygiene) Consciousness: Alert (But keeps eyes tightly closed) Orientation: Person, Place Motor Activity: Other (Motor exam as above) Speech: Unremarkable Language: Adequate Fund of Knowledge: Inadequate Attention and Concentration: Easily Distracted Memory: Impaired Mood: Good Affect: Irritable (Less so today) Thought Process & Associations: Loose associations, Disorganized Thought Content: Hallucinations Hallucination Type: Other (Responding to internal stimuli) Delusion Type: None Suicidal Ideation: No Suicidal Plan: No Suicidal Intention: No Homicidal Ideation: No Homicidal Plan: No Homicidal Intention: No Insight: Poor Judgment: Poor Results Vitals/IOs Vital Signs Date Time Temp Pulse Resp B/P (MAP) Pulse Ox O2 Delivery O2 Flow Rate FiO2 06/17/17 17:31 120 20 143/108 (120) 97 06/17/17 06:33 97.6 Intake and Output 06/17/17 06/17/17 06/18/17 08:00 16:00 00:00 Intake Total 480 ml 240 ml Balance 480 ml 240 ml Assessment & Plan Problem List: (1) Dementia with psychosis ICD Codes: F03.91 - Unspecified dementia with behavioral disturbance Status: Acute Assessment & Plan Patient this time continues to be confused secondary to dementia. Patient with recent irritable and agitated episode which she required Zyprexa 5 mg IM 1 to manage symptomatology. Patient to continue current treatment. We will start Abilify 2 mg p.o. at bedtime for management of psychosis and agitation with upper titration as needed. Consent obtained by patient's sister via telephone. Continue to monitor mood and behavior. Continue one-to-one observation for safety. Discharge planning in progress. Justification for Cont. Inpt. At risk of further decompensation at lower level of care. Request HC Surrog/Guard Advoc?: Yes Ernie Payne MD Jun 17, 2017 17:36
[2017-06-17] MEDS ORDERED: cloNIDine HCL 0.1 MG TAB PO PRN (17:45)
[2017-06-17 17:51] VITALS: BP 137/72; PULSE 90; RESP 20; TEMP 98.1; O2SAT 97
[2017-06-17] MEDS ORDERED: cloNIDine HCL 0.1 MG/24 HR PATCH T-DERMAL SCH (18:00)
--- NOTE | 2017-06-17 19:04 | MB ---
cc: Hari ANDERSON DATE: 06/17/2017 CHIEF COMPLAINT: Agitation. HISTORY OF PRESENT ILLNESS: This is a 76-year-old female patient who presented to the emergency room under a Garcia Act by the police department. At the time of her history, the patient was living alone. She reported that her had 2 weeks prior to her admission. Apparently, the patient was found rambling at home and she felt that people were stealing from her, and she was apparently found in a poor state by the police and she was brought to the emergency room for further evaluation. No other history is available at the present time. PAST SURGICAL HISTORY: Unobtainable. MEDICATIONS: Unobtainable. ALLERGIES: Unobtainable. REVIEW OF SYSTEMS: Not obtainable. SOCIAL HISTORY: Not obtainable. PHYSICAL EXAMINATION: VITAL SIGNS: Temperature of 98.1, pulse of 90, respiratory rate of 20, blood pressure of 137/72, pulse oximetry 97%. GENERAL: Shows a well-developed, agitated, thin female who wants to leave the unit and states that everybody is bullying her. HEENT: Unremarkable. NECK: Supple with good carotid pulses bilaterally. CHEST: Symmetric. Lungs are clear. HEART: Shows regular rhythm with normal heart sounds. ABDOMEN: Soft. EXTREMITIES: Clear. SKIN: Clear. NEUROLOGIC: She is alert and awake. She has a fluent speech. She is confused. She is agitated. She tends to ramble. She follows some simple commands. She is presently standing and walking in the aj. Cranial nerves 2-12 appear intact. Motor exam is 5+/5. Sensory exam intact to touch. Deep tendon reflexes are 1+ at all sites. DIAGNOSTIC STUDIES: Review of a CT scan of the brain shows what appears to be some cortical atrophy with moderate ventriculomegaly. No masses are seen. OVERALL IMPRESSION: Moderate ventriculomegaly. It is not clear whether this lady has normal pressure hydrocephalus. There is no evidence of apraxia of gait and no clear evidence of urinary incontinence. Would recommend outpatient evaluation once she is controlled. She will require an MRI of the brain. She will also require a neurology evaluation and depending on those tests, she may need to have a provocative test for cerebrospinal fluid drainage. Since she does not have any apraxia of gait and she does not appear to have any significant urinary incontinence, it is unclear whether this truly represents normal pressure hydrocephalus. Again, if she is going to leave the area to go to [place], she should undergo evaluation in [place], but she can be followed here if needed and indicated. Hari BLACK/JACKIE , 06:35 PM , 07:03 PM [place]
[2017-06-17] MEDS: ARIPiprazole 2 MG TAB PO SCH ×2 (20:50→20:53)
--- NOTE | 2017-06-17 23:37 | EKG ---
Date Performed: 06/17/2017 Time Performed: 14:40:15 PTAGE: 76 years EKG: Sinus rhythm VOLTAGE CRITERIA FOR LVH ABNORMAL ECG NO PREVIOUS TRACING DOCTOR: Robert Iqbal Interpretating Date/Time 06/17/2017 23:35:24
[2017-06-18 06:01] VITALS: BP 164/80; PULSE 64; RESP 16; TEMP 97.9; O2SAT 95
[2017-06-18 08:44] LABS: BASOPHIL # 0.1 TH/MM3 (0-0.2); EOSINOPHIL # 0.1 TH/MM3 (0-0.4); EOSINOPHIL % 2.1 % (0.0-4.0); HEMATOCRIT 40.6 % (35.0-46.0); HEMOGLOBIN 12.8 GM/DL (11.6-15.3); LYMPH % 35.5 % (9.0-44.0); MEAN CELL VOLUME 74.4 FL (80.0-100.0); MEAN CORPUSCULAR HEMOGLOBIN 23.5 PG (27.0-34.0); MEAN CORPUSCULAR HGB CONC 31.5 % (32.0-36.0); MEAN PLATELET VOLUME 7.8 FL (7.0-11.0); MONO % 6.4 % (0.0-8.0); MONOCYTE # 0.4 TH/MM3 (0-0.9); PLATELET COUNT 296 TH/MM3 (150-450); RED BLOOD COUNT 5.45 MIL/MM3 (4.00-5.30); RED CELL DISTRIBUTION WIDTH 16.3 % (11.6-17.2); WHITE BLOOD COUNT 5.5 TH/MM3 (4.0-11.0)
[2017-06-18 09:11] LABS: ALBUMIN 3.7 GM/DL (3.4-5.0); ALT (GPT) 29 U/L (10-53); AST (GOT) 24 U/L (15-37); BICARBONATE 31.3 MEQ/L (21.0-32.0); BLOOD UREA NITROGEN 15 MG/DL (7-18); CALCIUM 9.6 MG/DL (8.5-10.1); CHLORIDE 106 MEQ/L (98-107); CREATININE 0.65 MG/DL (0.50-1.00); GLOMERULAR FILTRATION RATE 89 ML/MIN (>89); GLUCOSE,RANDOM 87 MG/DL (74-106); MAGNESIUM 2.2 MG/DL (1.5-2.5); SODIUM (NA) 143 MEQ/L (136-145)
[2017-06-18 09:20] LABS: ALKALINE PHOSPHATASE 66 U/L (45-117); FREE T4 1.11 NG/DL (0.76-1.46); PHOSPHORUS 2.3 MG/DL (2.5-4.9); TOTAL BILIRUBIN ADULT 1.4 MG/DL (0.2-1.0); TOTAL PROTEIN 7.4 GM/DL (6.4-8.2)
[2017-06-18 10:42] LABS: HEMOGLOBIN A1C 4.6 % (4.3-6.0)
--- NOTE | 2017-06-18 10:48 | HHI.PR ---
Subjective Remarks Patient is a 76-year-old female who is here under a Garcia act due to dementia with psychosis and chronic alcohol abuse. We have been asked to evaluate regarding possibility of normal pressure hydrocephalus. Will ask neurosurgery to evaluate this. Will get a.m. labs. Have discussed with patient and RN patient is able to ambulate without a walker. 06-18 patient has been seen by neurosurgery and they recommended an MRI and the rest of the study recommend as an outpatient Patient does not fit the normal pressure hydrocephalus picture Does not have urinary incontinence and does not have majorly abnormal gait Will order the MRI Objective Vitals Vital Signs Date Time Temp Pulse Resp B/P (MAP) Pulse Ox O2 Delivery O2 Flow Rate FiO2 06/18/17 06:01 97.9 64 16 164/80 (108) 95 06/17/17 17:51 98.1 90 20 137/72 (93) 97 06/17/17 17:31 120 20 143/108 (120) 97 I/O 06/17/17 06/17/17 06/17/17 06/18/17 06/18/17 06/18/17 07:00 15:00 23:00 07:00 15:00 23:00 Intake Total 480 ml 240 ml 0 ml 0 ml 360 ml Balance 480 ml 240 ml 0 ml 0 ml 360 ml Intake Oral 480 ml 240 ml 0 ml 0 ml 360 ml # Voids 2 0 2 Result Diagram: 06/18/17 0807 06/18/17 0807 Other Results Laboratory Tests Test 06/18/17 08:07 White Blood Count 5.5 TH/MM3 Red Blood Count 5.45 MIL/MM3 Hemoglobin 12.8 GM/DL Hematocrit 40.6 % Mean Corpuscular Volume 74.4 FL Mean Corpuscular Hemoglobin 23.5 PG Mean Corpuscular Hemoglobin Concent 31.5 % Red Cell Distribution Width 16.3 % Platelet Count 296 TH/MM3 Mean Platelet Volume 7.8 FL Neutrophils (%) (Auto) 55.0 % Lymphocytes (%) (Auto) 35.5 % Monocytes (%) (Auto) 6.4 % Eosinophils (%) (Auto) 2.1 % Basophils (%) (Auto) 1.0 % Neutrophils # (Auto) 3.0 TH/MM3 Lymphocytes # (Auto) 2.0 TH/MM3 Monocytes # (Auto) 0.4 TH/MM3 Eosinophils # (Auto) 0.1 TH/MM3 Basophils # (Auto) 0.1 TH/MM3 CBC Comment DIFF FINAL Differential Comment Blood Urea Nitrogen 15 MG/DL Creatinine 0.65 MG/DL Random Glucose 87 MG/DL Total Protein 7.4 GM/DL Albumin 3.7 GM/DL Calcium Level 9.6 MG/DL Phosphorus Level 2.3 MG/DL Magnesium Level 2.2 MG/DL Alkaline Phosphatase 66 U/L Aspartate Amino Transf (AST/SGOT) 24 U/L Alanine Aminotransferase (ALT/SGPT) 29 U/L Total Bilirubin 1.4 MG/DL Sodium Level 143 MEQ/L Potassium Level 4.0 MEQ/L Chloride Level 106 MEQ/L Carbon Dioxide Level 31.3 MEQ/L Anion Gap 6 MEQ/L Estimat Glomerular Filtration Rate 89 ML/MIN Free Thyroxine 1.11 NG/DL Thyroid Stimulating Hormone 3rd Gen 3.280 uIU/ML Imaging Last Impressions Head CT 06/14/17 0000 Signed Impressions: Service Date/Time: Wednesday, June 14, 2017 10:31 - CONCLUSION: 1. Senescent changes with diffuse ventriculomegaly that is slightly out of proportion to degree of atrophy. Clinical correlation for normal pressure hydrocephalus is recommended. 2. Otherwise, no acute intracranial abnormality. Fer Solano MD Objective Remarks GENERAL: Awake and alert oriented 2-3 did not get the year correctly SKIN: Warm and dry. HEAD: Atraumatic. Normocephalic. EYES: Pupils equal and round. No scleral icterus. No injection or drainage. Extraocular muscles intact ENT: No nasal bleeding or discharge. Mucous membranes pink and moist. Tongue is midline NECK: Trachea midline. No JVD. CARDIOVASCULAR: Regular rate and rhythm. S1-S2 no S3 or S4 RESPIRATORY: No accessory muscle use. Clear to auscultation. Breath sounds equal bilaterally. GASTROINTESTINAL: Abdomen soft, non-tender, nondistended. Hepatic and splenic margins not palpable. MUSCULOSKELETAL: Extremities without clubbing, cyanosis, or edema. No obvious deformities. NEUROLOGICAL: Awake and alert. No obvious cranial nerve deficits. Motor grossly within normal limits. 4 out of 5 muscle strength in the arms and legs. Normal speech. PSYCHIATRIC: INAppropriate mood and affect; insight and judgment ABnormal. Procedures None Medications and IVs Current Medications Quetiapine Fumarate (SEROquel) 25 mg ONCE ONCE PO Last administered on at 21:19; Start 06/10/17 at 21:00; Stop 06/10/17 at 21:01; Status DC Lorazepam (Ativan Inj) 1 mg ONCE ONCE IM Last administered on 06/11/17at 01:18 ; Start 06/10/17 at 21:30; Stop 06/10/17 at 21:31; Status DC Olanzapine (ZyPREXA INJ) 10 mg ONCE ONCE IM Last administered on 06/10/17at 23: 13; Start 06/10/17 at 23:00; Stop 06/10/17 at 23:01; Status DC Lorazepam (Ativan Inj) 1 mg ONCE ONCE IM Last administered on 06/11/17at 08:59 ; Start 06/11/17 at 09:00; Stop 06/11/17 at 09:01; Status DC Acetaminophen (Tylenol) 650 mg Q4H PRN PO Pain 1-5 or Temp >101F Last administered on 06/13/17at 17:40; Start 06/11/17 at 15:30 Magnesium Hydroxide (Milk Of Magnesia Liq) 30 ml DAILY PRN PO CONSTIPATION; Start 06/11/17 at 15:30 Al Hydrox/Mg Hydrox/Simethicone (Mag-Al Plus Susp Liq) 30 ml Q6H PRN PO DYSPEPSIA; Start 06/11/17 at 15:30 Folic Acid (Folate) 1 mg DAILY PO Last administered on 06/16/17at 09:00; Start 06/12/17 at 09:00; Stop 06/17/17 at 08:59; Status DC Thiamine HCl (Vitamin B1) 100 mg DAILY PO Last administered on 06/17/17at 09:08 ; Start 06/12/17 at 09:00 Multivitamins/ Minerals Therapeutic (Theragran M Tab) 1 tab DAILY PO Last administered on 06/16/17at 09:00; Start 06/12/17 at 09:00; Stop 06/17/17 at 08:59 ; Status DC Flumazenil (Romazicon Inj) 0.2 mg Q1M PRN IV PUSH SEE LABEL COMMENTS; Start at 15:30 Lorazepam (Ativan) 1 mg Q4H PRN PO CIWA 8 - 10 Last administered on 06/12/17at 21:48; Start 06/11/17 at 16:00 Lorazepam (Ativan Inj) 1 mg Q4H PRN IV PUSH CIWA 8 - 10; Start 06/11/17 at 16: 00 Lorazepam (Ativan) 2 mg Q2H PRN PO CIWA 11-14; Start 06/11/17 at 16:00 Lorazepam (Ativan Inj) 2 mg Q2H PRN IV PUSH CIWA 11-14; Start 06/11/17 at 16:00 Lorazepam (Ativan Inj) 2 mg Q1H PRN IV PUSH CIWA 15-20; Start 06/11/17 at 16:00 Lorazepam (Ativan Inj) 2 mg Q15M PRN IV PUSH CIWA > 20; Start 06/11/17 at 16:00 Olanzapine (ZyPREXA INJ) 10 mg STK-MED ONCE IM ; Start 06/11/17 at 19:29; Stop 06/11/17 at 19:30; Status DC Olanzapine (ZyPREXA INJ) 5 mg ONCE ONCE IM Last administered on 06/11/17at 19: 30; Start 06/11/17 at 19:45; Stop 06/11/17 at 19:46; Status DC Olanzapine (ZyPREXA INJ) 5 mg ONCE ONCE IM Last administered on 06/11/17at 23: 41; Start 06/11/17 at 23:45; Stop 06/11/17 at 23:46; Status DC Olanzapine (ZyPREXA INJ) 10 mg STK-MED ONCE IM ; Start 06/17/17 at 11:06; Stop 06/17/17 at 11:07; Status DC Olanzapine (ZyPREXA INJ) 5 mg ONCE ONCE IM Last administered on 06/17/17at 11: 15; Start 06/17/17 at 11:15; Stop 06/17/17 at 11:17; Status DC Aripiprazole (Abilify) 2 mg HS PO ; Start 06/17/17 at 21:00 Clonidine (Catapres) 0.1 mg Q4H PRN PO SBP>160, DBP>90; Start 06/17/17 at 17:45 Clonidine (Catapres-Tts 0.1mg Patch.7d) 1 patch Q7D T-DERMAL Last administered on 06/17/17at 18:00; Start 06/17/17 at 18:00 A/P Problem List: (1) Dementia with psychosis ICD Code: F03.91 - Unspecified dementia with behavioral disturbance Status: Acute (2) Alcohol use disorder ICD Code: F10.99 - Alcohol use, unspecified with unspecified alcohol-induced disorder Status: Acute Assessment and Plan Dementia will defer to psychiatry Alcohol abuse continue on multivitamin thiamine and folic acid Possible normal pressure hydrocephalus--NEITHER MYSELF OR NEUROSURGERY SUSPECT NPH We will consult neurosurgery for evaluation -WILL GET MRI AT RECOMMENDATIONS physical therapy note does not Suggest wide-based gait Patient does have dementia No issues at this time with urinary issues but is wearing a diaper Possible hypertension we will monitor- CATAPRES PRN Discharge Planning PENDING PSYCHIATRIC CLEARANCE David Gutierrez DO Jun 18, 2017 10:47
--- NOTE | 2017-06-18 11:20 | HHI.PYPN ---
Subjective Chief Complaint: Dementia with psychosis Remarks The patient was seen today for psychiatric reevaluation. Patient was found in her room, very colorful, wearing sunglasses, talkative. Patient reports that she feels fine, she is happy, ready to go out to take some sun. Patient has a very poor insight of her psychiatric conditions, she says that she came to the hospital because her father and her mother recently and she has been depressed. She denies suicidal enemas ideation, she denies visual and auditory hallucinations. The patient is disorganized, with loosening of associations, but redirectable. Patient has been refusing medications, at times disruptive in the unit. Review of Systems Constitutional: DENIES: Diaphoretic episodes, Fatigue, Fever, Weight gain, Weight loss, Chills, Dizziness, Change in appetite, Night Sweats Endocrine: DENIES: Abnorml menstrual pattern, Heat/cold intolerance, Polydipsia , Polyuria, Polyphagia Eyes: DENIES: Blurred vision, Diplopia, Eye inflammation, Eye pain, Vision loss , Photosensitivity, Double Vision Ears, nose, mouth, throat: DENIES: Tinnitus, Hearing loss, Vertigo, Nasal discharge, Oral lesions, Throat pain, Hoarseness, Ear Pain, Running Nose, Epistaxis, Sinus Pain, Toothache, Odynophagia Respiratory: DENIES: Apneas, Cough, Snoring, Wheezing, Hemoptysis, Sputum production, Shortness of breath Cardiovascular: DENIES: Chest pain, Palpitations, Syncope, Dyspnea on Exertion , PND, Lower Extremity Edema, Orthopnea, Claudication Gastrointestinal: DENIES: Abdominal pain, Black stools, Bloody stools, Constipation, Diarrhea, Nausea, Vomiting, Difficulty Swallowing, Anorexia Genitourinary: DENIES: Abnormal vaginal bleeding, Dysmenorrhea, Dyspareunia, Sexual dysfunction, Urinary frequency, Urinary incontinence, Urgency, Hematuria , Dysuria, Nocturia, Vaginal discharge Musculoskeletal: DENIES: Joint pain, Muscle aches, Stiffness, Joint Swelling, Back pain, Neck pain Integumentary: DENIES: Abnormal pigmentation, Pruritus, Rash, Nail changes, Breast masses, Breast skin changes, Nipple discharge Hematologic/lymphatic: DENIES: Bruising, Lymphadenopathy Immunologic/allergic: DENIES: Eczema, Urticaria Psychiatric: DENIES: Anxiety, Confusion, Mood changes, Depression, Hallucinations, Agitation, Suicidal Ideation, Homicidal Ideation, Delusions Mental Status Examination Appearance: Appropriate, Other (Fair grooming/hygiene) Consciousness: Alert (But keeps eyes tightly closed) Orientation: Person, Place Motor Activity: Other (Motor exam as above) Speech: Unremarkable Language: Adequate Fund of Knowledge: Inadequate Attention and Concentration: Easily Distracted Memory: Impaired Mood: Good Affect: Irritable (Less so today) Thought Process & Associations: Loose associations, Disorganized Thought Content: Hallucinations Hallucination Type: Other (Responding to internal stimuli) Delusion Type: None Suicidal Ideation: No Suicidal Plan: No Suicidal Intention: No Homicidal Ideation: No Homicidal Plan: No Homicidal Intention: No Insight: Poor Judgment: Poor Results Labs Test 06/18/17 08:07 White Blood Count 5.5 TH/MM3 Red Blood Count 5.45 MIL/MM3 Hemoglobin 12.8 GM/DL Hematocrit 40.6 % Mean Corpuscular Volume 74.4 FL Mean Corpuscular Hemoglobin 23.5 PG Mean Corpuscular Hemoglobin Concent 31.5 % Red Cell Distribution Width 16.3 % Platelet Count 296 TH/MM3 Mean Platelet Volume 7.8 FL Neutrophils (%) (Auto) 55.0 % Lymphocytes (%) (Auto) 35.5 % Monocytes (%) (Auto) 6.4 % Eosinophils (%) (Auto) 2.1 % Basophils (%) (Auto) 1.0 % Neutrophils # (Auto) 3.0 TH/MM3 Lymphocytes # (Auto) 2.0 TH/MM3 Monocytes # (Auto) 0.4 TH/MM3 Eosinophils # (Auto) 0.1 TH/MM3 Basophils # (Auto) 0.1 TH/MM3 CBC Comment DIFF FINAL Differential Comment Blood Urea Nitrogen 15 MG/DL Creatinine 0.65 MG/DL Random Glucose 87 MG/DL Total Protein 7.4 GM/DL Albumin 3.7 GM/DL Calcium Level 9.6 MG/DL Phosphorus Level 2.3 MG/DL Magnesium Level 2.2 MG/DL Alkaline Phosphatase 66 U/L Aspartate Amino Transf (AST/SGOT) 24 U/L Alanine Aminotransferase (ALT/SGPT) 29 U/L Total Bilirubin 1.4 MG/DL Sodium Level 143 MEQ/L Potassium Level 4.0 MEQ/L Chloride Level 106 MEQ/L Carbon Dioxide Level 31.3 MEQ/L Anion Gap 6 MEQ/L Estimat Glomerular Filtration Rate 89 ML/MIN Hemoglobin A1c 4.6 % Free Thyroxine 1.11 NG/DL Thyroid Stimulating Hormone 3rd Gen 3.280 uIU/ML Vitals/IOs Vital Signs Date Time Temp Pulse Resp B/P (MAP) Pulse Ox O2 Delivery O2 Flow Rate FiO2 06/18/17 06:01 97.9 64 16 164/80 (108) 95 Intake and Output 06/18/17 06/18/17 06/18/17 07:59 15:59 23:59 Intake Total 0 ml 360 ml Balance 0 ml 360 ml Assessment & Plan Problem List: (1) Dementia with psychosis ICD Codes: F03.91 - Unspecified dementia with behavioral disturbance Status: Acute Assessment & Plan: Patient continues to be disorganized, with loosening of associations, very talkative and delusional continue current psychotropic medication. Encouraged the patient to take her medications. Assessment & Plan Estimated LOS: days Justification for Cont. Inpt. Patient is acutely psychotic. Request HC Surrog/Guard Advoc?: Yes Balwinder Pastrana MD Jun 18, 2017 11:20
[2017-06-18 18:19] VITALS: BP 138/64; PULSE 80; RESP 20; TEMP 97.7; O2SAT 98
[2017-06-18] MEDS: ARIPiprazole 2 MG TAB PO SCH (21:05)
[2017-06-19 07:14] VITALS: BP 138/68; PULSE 65; RESP 18; TEMP 97.4; O2SAT 99
--- NOTE | 2017-06-19 08:56 | RADRPT ---
EXAM DATE/TIME: 06/19/2017 08:31 [facility] COMPARISON: CT BRAIN W/O CONTRAST, June 14, 2017, 10:31. INDICATIONS : Hydrocephalus. MEDICAL HISTORY : Hypertension. Renal calculi. SURGICAL HISTORY : None. ENCOUNTER: Initial ACUITY: 4-6 days PAIN SCORE: 0/10 LOCATION: cranial TECHNIQUE: Multiplanar, multisequence MRI of the brain was performed without contrast. FINDINGS: Diffusion weighted images demonstrate no evidence for acute infarction. There is diffuse prominence o f the CSF spaces, ventricles and cisterns. The signal intensity of the brain is normal for age. There is mild ventriculomegaly. No hemorrhage or mass. CONCLUSION: Diffuse atrophy otherwise unremarkable. Efra Rajput MD on June 19, 2017 at 8:52 Board Certified Radiologist. This report was verified electronically.
[2017-06-19] MEDS: THIAMINE HCL 100 MG TAB PO SCH (09:20)
--- NOTE | 2017-06-19 10:38 | HHI.PYPN ---
Subjective Chief Complaint: Dementia with psychosis Remarks The patient was seen today for psychiatric reevaluation along with nurse in charge Cem. The patient is talkative, with elevated mood and affect, quite histrionic. She reports that she does not need to take medications, that she is absolutely fine, she is very happy," I love myself, I know I am perfect, I did not need to take medications". With redirection the patient was able to a set finally to take the medications. She has been compliant on and off. At times confused, she is just partially oriented in time and place. She denies suicidal and was ideation, she denies visual and auditory hallucinations. Review of Systems Except as stated in HPI: all other systems reviewed are Neg Mental Status Examination Appearance: Appropriate, Other (Fair grooming/hygiene) Consciousness: Alert (But keeps eyes tightly closed) Orientation: Person, Place Motor Activity: Other (Motor exam as above) Speech: Unremarkable Language: Adequate Fund of Knowledge: Inadequate Attention and Concentration: Easily Distracted Memory: Impaired Mood: Good Affect: Irritable (Less so today) Thought Process & Associations: Loose associations, Disorganized Thought Content: Hallucinations Hallucination Type: Other (Responding to internal stimuli) Delusion Type: None Suicidal Ideation: No Suicidal Plan: No Suicidal Intention: No Homicidal Ideation: No Homicidal Plan: No Homicidal Intention: No Insight: Poor Judgment: Poor Results Vitals/IOs Vital Signs Date Time Temp Pulse Resp B/P (MAP) Pulse Ox O2 Delivery O2 Flow Rate FiO2 06/19/17 07:14 97.4 65 18 138/68 (91) 99 Intake and Output 06/19/17 06/19/17 06/20/17 08:00 16:00 00:00 Intake Total 0 ml Balance 0 ml Assessment & Plan Problem List: (1) Dementia with psychosis ICD Codes: F03.91 - Unspecified dementia with behavioral disturbance Status: Acute Assessment & Plan: Continue current psychotropic regimen. Encouraged the patient to take medications. I do not see a reason to keep the patient with a sitter. Assessment & Plan Estimated LOS: days Justification for Cont. Inpt. Patient has an increased risk to decompensate at a lower level of care Request HC Surrog/Guard Advoc?: Yes Balwinder Pastrana MD Jun 19, 2017 10:38
--- NOTE | 2017-06-19 11:00 | HHI.PR ---
Subjective Remarks Patient seen and examined this morning. Afebrile vital signs stable. Doing well at this time. Has no major complaints other than that she is sleepy. Will continue current medical regimen. Awaiting results of MRI for further evaluation. Objective Vitals Vital Signs Date Time Temp Pulse Resp B/P (MAP) Pulse Ox O2 Delivery O2 Flow Rate FiO2 06/19/17 07:14 97.4 65 18 138/68 (91) 99 06/18/17 18:19 97.7 80 20 138/64 (88) 98 I/O 06/18/17 06/18/17 06/18/17 06/19/17 06/19/17 06/19/17 07:00 15:00 23:00 07:00 15:00 23:00 Intake Total 0 ml 1200 ml 1200 ml 0 ml Balance 0 ml 1200 ml 1200 ml 0 ml Intake Oral 0 ml 1200 ml 1200 ml 0 ml # Voids 2 0 1 Result Diagram: 06/18/17 0807 06/18/17 0807 Imaging Last Impressions Brain MRI 06/19/17 0000 Signed Impressions: Service Date/Time: Monday, June 19, 2017 08:31 - CONCLUSION: Diffuse atrophy otherwise unremarkable. Efra Rajput MD Head CT 06/14/17 0000 Signed Impressions: Service Date/Time: Wednesday, June 14, 2017 10:31 - CONCLUSION: 1. Senescent changes with diffuse ventriculomegaly that is slightly out of proportion to degree of atrophy. Clinical correlation for normal pressure hydrocephalus is recommended. 2. Otherwise, no acute intracranial abnormality. Fer Solano MD Objective Remarks GEN: Well-developed, well-nourished patient thin female. No acute distress. CV: Regular rate and rhythm without obvious murmurs LUNGS: Clear to auscultation bilaterally. Normal respiratory effort. No wheezes , rales, rhonchi. GI: Soft, nontender, nondistended. No palpable masses. Bowel sounds WNL. EXT: No edema. NEURO/PSYCH: Afocal. Awake, alert, and oriented x2 missed the date. Appropriate insight and judgment. Procedures None Medications and IVs Current Medications Medications (Trade) Dose Ordered Sig/Taylor Route Start Time Stop Time Status Last Admin (Tylenol) 650 mg Q4H PRN PO 06/11/17 15:30 06/13/17 17:40 (Milk Of Magnesia Liq) 30 ml DAILY PRN PO 06/11/17 15:30 (Mag-Al Plus Susp Liq) 30 ml Q6H PRN PO 06/11/17 15:30 (Vitamin B1) 100 mg DAILY PO 06/12/17 09:00 06/19/17 09:20 (Romazicon Inj) 0.2 mg Q1M PRN IV PUSH 06/11/17 15:30 (Ativan) 1 mg Q4H PRN PO 06/11/17 16:00 06/12/17 21:48 (Ativan Inj) 1 mg Q4H PRN IV PUSH 06/11/17 16:00 (Ativan) 2 mg Q2H PRN PO 06/11/17 16:00 (Ativan Inj) 2 mg Q2H PRN IV PUSH 06/11/17 16:00 (Ativan Inj) 2 mg Q1H PRN IV PUSH 06/11/17 16:00 (Ativan Inj) 2 mg Q15M PRN IV PUSH 06/11/17 16:00 (Abilify) 2 mg HS PO 06/17/17 21:00 06/18/17 21:05 (Catapres) 0.1 mg Q4H PRN PO 06/17/17 17:45 (Catapres-Tts 0.1mg Patch.7d) 1 patch Q7D T-DERMAL 06/17/17 18:00 06/17/17 18:00 A/P Problem List: (1) Dementia with psychosis ICD Code: F03.91 - Unspecified dementia with behavioral disturbance Status: Acute (2) Alcohol use disorder ICD Code: F10.99 - Alcohol use, unspecified with unspecified alcohol-induced disorder Status: Acute Assessment and Plan 76-year-old female with history of alcohol abuse and dementia with psychosis at this time. Dementia will defer to psychiatry Alcohol abuse continue on multivitamin thiamine and folic acid Possible normal pressure hydrocephalus--neurosurgeon does not suspect NPH -consulted neurosurgery for evaluation -Pending MRI results at this time. physical therapy note does not Suggest wide-based gait Patient does have dementia No issues at this time with urinary issues but is wearing a diaper Possible hypertension we will monitor- CATAPRES PRN Discharge Planning PENDING PSYCHIATRIC CLEARANCE Girish Barker MD R3 Jun 19, 2017 11:00
[2017-06-19] MEDS: ARIPiprazole 2 MG TAB PO SCH (20:43)
[2017-06-20 06:02] VITALS: BP 105/52; PULSE 66; RESP 17; TEMP 97.3; O2SAT 97
[2017-06-20] MEDS: THIAMINE HCL 100 MG TAB PO SCH (09:00)
--- NOTE | 2017-06-20 12:13 | HHI.PR ---
Subjective Remarks Follow-up visit for possible NPH. Patient is seen and examined in the day room today. She denies any fever, chills, n/v/d, headache, dizziness, or visual changes. Confusion at times, but does remember that she had a MRI of her head, she goes on to talking about the of her . Following commands, ambulating with walker. Objective Vitals Vital Signs Date Time Temp Pulse Resp B/P (MAP) Pulse Ox O2 Delivery O2 Flow Rate FiO2 06/20/17 06:02 97.3 66 17 105/52 (69) 97 I/O 06/19/17 06/19/17 06/19/17 06/20/17 06/20/17 06/20/17 07:00 15:00 23:00 07:00 15:00 23:00 Intake Total 0 ml 840 ml Balance 0 ml 840 ml Intake Oral 0 ml 840 ml # Voids 1 1 0 Result Diagram: 06/18/17 0807 06/18/17 0807 Imaging Last Impressions Brain MRI 06/19/17 0000 Signed Impressions: Service Date/Time: Monday, June 19, 2017 08:31 - CONCLUSION: Diffuse atrophy otherwise unremarkable. Efra Rajput MD Head CT 06/14/17 0000 Signed Impressions: Service Date/Time: Wednesday, June 14, 2017 10:31 - CONCLUSION: 1. Senescent changes with diffuse ventriculomegaly that is slightly out of proportion to degree of atrophy. Clinical correlation for normal pressure hydrocephalus is recommended. 2. Otherwise, no acute intracranial abnormality. Fer Solano MD Objective Remarks GENERAL: Well-developed, well-nourished patient thin female. No acute distress. CARDIOVASCULAR: Regular rate and rhythm without obvious murmurs LUNGS: Clear to auscultation bilaterally. Normal respiratory effort. No wheezes , rales, rhonchi. GASTROINTESTINAL: Soft, nontender, nondistended. No palpable masses. Normoactive bowel sounds EXTREMITIES: No edema, ambulating with walker. NEURO/PSYCH: Awake, alert, and oriented to person and place, ongoing confusion. Procedures None A/P Problem List: (1) Dementia with psychosis ICD Code: F03.91 - Unspecified dementia with behavioral disturbance Status: Acute (2) Alcohol use disorder ICD Code: F10.99 - Alcohol use, unspecified with unspecified alcohol-induced disorder Status: Acute Assessment and Plan 76-year-old female with history of alcohol abuse and dementia with psychosis at this time. Dementia - defer treatment plan to psychiatry Alcohol abuse - continue on multivitamin thiamine and folic acid Possible normal pressure hydrocephalus--neurosurgeon does not suspect NPH -consulted neurosurgery for evaluation -MRI with no acute infarct, diffuse prominence of CSF spaces, ventricles and cisterns. There is also signal intensity of the brain which is normal for age per report. Mild ventriculomegaly with no hemorrhage or mass effect. - neurosurgery evaluated, will need outpatient evaluation for further eval./ drain or tap. Discussed with physical therapy note does not Suggest wide-based gait - Patient does have dementia - No issues at this time with urinary issues but is wearing a diaper Possible hypertension we will monitor- Akanksha Felton Jun 20, 2017 12:13
[2017-06-20 18:22] VITALS: BP 134/66; PULSE 89; RESP 19; TEMP 97.6; O2SAT 96
[2017-06-20] MEDS: ARIPiprazole 2 MG TAB PO SCH (20:59)
--- NOTE | 2017-06-20 22:02 | HHI.PYPN ---
Subjective Chief Complaint: Dementia with psychosis Remarks Patient seen for follow up; chart reviewed. Discussion nursing staff reported the patient continues to be confused, and refuse Abilify last evening but had no periods of agitation today. Patient was found to ambulate on the unit continued to be alert and oriented only to person. Patient seemed to be interacting with other patients on the unit. Patient denies any physical complaints, reports her mood has been "fine" reports eating and drinking well with no difficulty or bowel movement. Patient denies any perceptual disturbances. Review of Systems Except as stated in HPI: all other systems reviewed are Neg Mental Status Examination Appearance: Appropriate, Other (Fair grooming/hygiene) Consciousness: Alert (But keeps eyes tightly closed) Orientation: Person, Place Motor Activity: Other (Motor exam as above) Speech: Unremarkable Language: Adequate Fund of Knowledge: Inadequate Attention and Concentration: Easily Distracted Memory: Impaired Mood: Good Affect: Appropriate Thought Process & Associations: Loose associations, Disorganized Thought Content: Hallucinations Hallucination Type: Other (Responding to internal stimuli) Delusion Type: None Suicidal Ideation: No Suicidal Plan: No Suicidal Intention: No Homicidal Ideation: No Homicidal Plan: No Homicidal Intention: No Insight: Poor Judgment: Poor Results Vitals/IOs Vital Signs Date Time Temp Pulse Resp B/P (MAP) Pulse Ox O2 Delivery O2 Flow Rate FiO2 06/20/17 18:22 97.6 89 19 134/66 (88) 96 Intake and Output 06/20/17 06/20/17 06/21/17 08:00 16:00 00:00 Intake Total 720 ml 120 ml Balance 720 ml 120 ml Assessment & Plan Problem List: (1) Dementia with psychosis ICD Codes: F03.91 - Unspecified dementia with behavioral disturbance Status: Acute Assessment & Plan Patient this time continues to be confused secondary to neurocognitive deficits. Patient with no behavioral disturbances. Patient had refused Abilify last evening, continue to encourage patient to comply with treatment. Continue to monitor mood and behavior. Discharge planning in progress. Justification for Cont. Inpt. At risk of further decompensation at lower level care. Request HC Surrog/Guard Advoc?: Yes Ernie Payne MD Jun 20, 2017 22:02
[2017-06-21 06:14] VITALS: BP 125/60; PULSE 64; RESP 16; TEMP 98.1; O2SAT 95
[2017-06-21] MEDS: THIAMINE HCL 100 MG TAB PO SCH (09:19)
[2017-06-21] MEDS ORDERED: ARIP2 PO (11:44)
[2017-06-21] MEDS ORDERED: THIA100 PO (11:44)
--- NOTE | 2017-06-21 11:45 | HHI.DS ---
Psychiatry Discharge Summary Inpatient Psychiatric care?: Yes Advance Directive: No Mental Health AdvanceDirective: No Health Care Proxy: Yes Admission Admission Date Jun 11, 2017 at 15:31 Admission Diagnosis: (1) Dementia with psychosis ICD Code: F03.91 - Unspecified dementia with behavioral disturbance Brief History Ms. Lima is a 76-year-old female of uncertain past psychiatric history who was brought to the emergency department under a Garcia act by law enforcement alleging patient thought there was a woman in her house and had minimal food in the house. Patient was seen by the psychiatric nurse practitioner in the ED, and I have reviewed her notes. Reviewing the electronic medical record, I note this is patient's first visit to [place].Patient seen and examined. Chart reviewed. Case discussed with nursing staff. Patient awoke yesterday evening and was severely agitated, and at one point she tried to bite her sitter. As the physician labor economist, I ordered the patient medicated with Zyprexa 5 mg IM ETO , and when this was ineffective I ordered another 5 mg of Zyprexa IM ETO. Nurse reports that there is a active DCF investigation with concern that the patient may be being financially exploited. We are presently unsure who is the focus of this investigation, and nurse has tried to call DCF competency evaluated nurse aide to clarify this. On my exam this morning, patient remains with 1:1 sitter. She exhibits carphologia, picking at her blanket. She is quite confused and appears to be responding to internal stimuli. She makes odd statements at time , for example saying apropos of nothing, "no good time [employer]." Affect is irritable and dysphoric. She refuses to answer questions regarding SI/HI/ AVH. Psychiatric interview is limited as patient is uncooperative and confused. She complains of generalized myalgias but has no other physical complaints. I do see the patient later up on the unit ambulating with her one- to-one sitter. Patient was seen today for second opinion. The patient is poorly cooperative, very oppositional and resistant. She is also irritable and verbally hostile. She reports that she does not want a repeat again what she has been saying over and over. The patient reports that she does not know what is the reason she is here. She says that she does not want to speak with any psychiatrist anymore "you asked to many unnecessary questions, you are not help him". As per nursing staff, the patient has been calm today, but episodically agitated and loud. Results Blood Pressure 125 / 60 Vital Signs Date Time Temp Pulse Resp B/P (MAP) Pulse Ox O2 Delivery O2 Flow Rate FiO2 06/21/17 06:14 98.1 64 16 125/60 (81) 95 Laboratory Results Test 06/12/17 08:51 06/18/17 08:07 Cholesterol Level 175 MG/DL (120-200) HDL Cholesterol 84.9 MG/DL (40.0-60.0) LDL Cholesterol 76 MG/DL (0-99) Triglycerides Level 69 MG/DL (42-150) Hemoglobin A1c 4.6 % (4.3-6.0) Imaging Last Impressions Brain MRI 06/19/17 0000 Signed Impressions: Service Date/Time: Monday, June 19, 2017 08:31 - CONCLUSION: Diffuse atrophy otherwise unremarkable. Efra Rajput MD Head CT 06/14/17 0000 Signed Impressions: Service Date/Time: Wednesday, June 14, 2017 10:31 - CONCLUSION: 1. Senescent changes with diffuse ventriculomegaly that is slightly out of proportion to degree of atrophy. Clinical correlation for normal pressure hydrocephalus is recommended. 2. Otherwise, no acute intracranial abnormality. Fer Solano MD Medications Approp Antipsych med options 1 - Minimum of three failed multiple trials of monotherapy. 2 - Documented plan to taper to monotherapy due to previous use of multiple meds OR cross-taper in progress at D/C. 3 - Documentation of augmentation of Clozapine. 4 - Justification other than those listed in allowable values 1-3, document here : Discharge Pt Condition on Discharge: Stable Discharge Disposition: Discharge to SNF Discharge Instructions Diet Instructions: Heart Healthy Diet Activities you can perform: Regular-No Restrictions Scheduled Appointment: At Facility Mental Status Examination Appearance: Appropriate, Other (Fair grooming/hygiene) Consciousness: Alert (But keeps eyes tightly closed) Orientation: Person, Place Motor Activity: Other (Motor exam as above) Speech: Unremarkable Language: Adequate Fund of Knowledge: Inadequate Attention and Concentration: Easily Distracted Memory: Impaired Mood: Good Affect: Appropriate Thought Process & Associations: Loose associations, Disorganized Thought Content: Hallucinations Hallucination Type: Other (Responding to internal stimuli) Delusion Type: None Suicidal Ideation: No Suicidal Plan: No Suicidal Intention: No Homicidal Ideation: No Homicidal Plan: No Homicidal Intention: No Insight: Poor Judgment: Poor Discharge/Advance Care Plan Health Problems: (1) Dementia with psychosis Goals to promote your health * To prevent worsening of your condition and complications * To maintain your health at the optimal level Directions to meet your goals Take your medications as prescribed Follow your dietary instruction Follow activity as directed Keep your appointments as scheduled Take your immunizations and boosters as scheduled If your symptoms worsen call your PCP, if no PCP go to Urgent Care Center or Emergency Room For 13/09 questions related to your inpatient stay or results of tests pending at discharge, please contact Dr. Ernie Payne at Smoking is Dangerous to Your Health. Avoid second hand smoking Ernie Payne MD June 21, 2017 11:45
--- NOTE | 2017-06-22 16:07 | PD.TTN ---
Patient Problems 1. Discharge planning 2. Medication compliance 3. Knowledge deficit 4. Lack of coping skills Progress Toward Goals Provider Present: Dr. Jude Payne Provider Input: 06/20/17 pt is confused and in need of placement , can go today if placement is arranged Nurse(s) Input: Kate romero cooperative med compliant has not had ETO Psychiatric Counselors Present: Manuela Gutierrez LCSW Psych Therapist Input: 06/20/17 she is accepted to [facility] and family will be coming to see her in facility and work on shelter care- she needs some direction Group Spec/RT/OT/MOSQUERA Present: DEMETRI Weinstein Group Spec/RT/OT/MOSQUERA Input: 06/20/17 she does not attend groups and has been disruptive Manuela Gutierrez LCSW June 22, 2017 16:07
== END 2017-06-21 14:10 | DRG 885 ==
LOC: NEPD 20:40 → NEDA 06-11 15:31 → H4EA 06-11 17:15 → H250 06-19 12:20
PROVIDERS: ADMIT Student in an Organized Health Care Education/Training Program; ATTEND Student in an Organized Health Care Education/Training Program
DX: F23 Brief psychotic disorder (principal); F03.91 Unspecified dementia, unspecified severity, with behavioral disturbance; R54 Age-related physical debility; Z78.1 Physical restraint status; I10 Essential (primary) hypertension; F10.10 Alcohol abuse, uncomplicated; M79.1 Myalgia; R26.81 Unsteadiness on feet
CPT/HCPCS: 70450; 70551; 80048; 80053; 80061; 80307; 81001; 82140; 82306; 82607; 82746; 83036; 83735; 84100; 84425; 84439; 84443; 85025; 86592; 86703; 93005; 96372; J2060; P9612